=== PATIENT | female | born 1965 | race Caucasian/White ===

== ENCOUNTER 2016-06-29 | Outpatient (CLI) | payer MEDICARE, MEDICAID | END 2016-06-29 21:17 | disposition critical access hospital (66) | CPT/HCPCS: A0425; A0429 ==

== ENCOUNTER 2016-06-29 21:31 | Emergency (ER) | payer MEDICARE, MEDICAID | END 2016-06-30 06:32 | disposition home or self-care (01) | DX: R50.9 Fever, unspecified (principal); I10 Essential (primary) hypertension; E11.9 Type 2 diabetes mellitus without complications; Z79.4 Long term (current) use of insulin; E03.9 Hypothyroidism, unspecified; G40.909 Epilepsy, unspecified, not intractable, without status epilepticus ==

== ENCOUNTER 2016-08-15 13:42 | Outpatient (CLI) | payer MEDICARE, MEDICAID | END 2016-08-15 13:43 | disposition critical access hospital (66) | DX: R47.02 Dysphasia (principal); M25.552 Pain in left hip | CPT/HCPCS: A0425; A0429 ==

== ENCOUNTER 2016-08-15 14:04 | Emergency (ER) | payer MEDICARE, MEDICAID | END 2016-08-15 18:52 | disposition home or self-care (01) | DX: N28.9 Disorder of kidney and ureter, unspecified (principal); R47.89 Other speech disturbances; E10.69 Type 1 diabetes mellitus with other specified complication; Z79.4 Long term (current) use of insulin; I10 Essential (primary) hypertension; E78.00 Pure hypercholesterolemia, unspecified; G40.909 Epilepsy, unspecified, not intractable, without status epilepticus; E03.9 Hypothyroidism, unspecified; K21.9 Gastro-esophageal reflux disease without esophagitis; M19.90 Unspecified osteoarthritis, unspecified site; Z79.82 Long term (current) use of aspirin ==

== ENCOUNTER 2016-09-14 18:22 | Outpatient (CLI) | payer MEDICARE, MEDICAID | END 2016-09-14 18:23 | disposition critical access hospital (66) | LOC: EMS 18:22 | PROVIDERS: ATTEND Surgery | DX: R45.851 Suicidal ideations (principal) | CPT/HCPCS: A0425; A0429 ==

== ENCOUNTER 2016-09-14 18:39 | Emergency (ER) | payer MEDICARE, MEDICAID | END 2016-09-14 20:30 | disposition home or self-care (01) | DX: F32.9 Major depressive disorder, single episode, unspecified (principal); I10 Essential (primary) hypertension; E78.00 Pure hypercholesterolemia, unspecified; E11.9 Type 2 diabetes mellitus without complications; E03.9 Hypothyroidism, unspecified; K21.9 Gastro-esophageal reflux disease without esophagitis; M10.9 Gout, unspecified; M19.90 Unspecified osteoarthritis, unspecified site; Z79.82 Long term (current) use of aspirin; Z79.4 Long term (current) use of insulin | CPT/HCPCS: 36415; 80053; 80164; 80306; 80307; 81001; 81025; 83690; 84443; 85025; 87086; 99283; G0480 ==

== ENCOUNTER 2016-10-14 14:52 | Outpatient (CLI) | payer MEDICARE, MEDICAID | END 2016-10-14 14:53 | disposition critical access hospital (66) | LOC: EMS 14:52 | PROVIDERS: ATTEND Surgery | DX: F91.9 Conduct disorder, unspecified (principal) | CPT/HCPCS: A0425; A0429 ==

== ENCOUNTER 2016-10-14 15:12 | Emergency (ER) | payer MEDICARE, MEDICAID ==
[2016-10-14 15:18] VITALS: BP 155/86
--- NOTE | 2016-10-14 15:31 | ED Physician Documentation ---
History of Present Illness - Stated complaint Stated Complaint: AGITATED - Chief complaint Chief Complaint: MHE - Additonal information Additional information: hx from pt and EMS51 female lives at [facility] was playing BINGO and using more cards than allowed when asked not to, she became very agitated and upset, yelling and swearing she was aske to go to her room which she did EMS was called when they arrived pt was calm and playing on her phone then [facility] staff tried to give pt ativan and she became upset again her counselor at [facility] could not be reached so she asked to be taken to the hospital so she can talk to someone denies MORALES CP AP, denies fever cough NVD urinary sx denies SI HI Review of Systems Constitutional: denies: Fever Cardiac: denies: Chest pain / pressure Respiratory: denies: Dyspnea, Cough GI: denies: Abdominal Pain, Nausea, Vomiting, Diarrhea : denies: Dysuria Neurologic: denies: Generalized weakness Immunocompromised: denies: Immunocompromised PD PAST MEDICAL HISTORY - Past Medical History Cardiovascular: Hypertension, High cholesterol Neuro: Seizure disorder, Other Endocrine/Autoimmune: Type 2 diabetes, HyPOthyroidism GI: GERD : Incontinence Psych: Depression, Anxiety, Bipolar disorder, Schizophrenia, Eating disorder, Other Musculoskeletal: Osteoarthritis, Gout, Other - Past Surgical History Past Surgical History: Yes General: Appendectomy HEENT: Other - Present Medications Home Medications: Ambulatory Orders Medication Instructions Recorded Confirmed Allopurinol [Zyloprim] 300 mg PO QPM 02/05/15 10/14/16 Aspirin [Ecotrin] 81 mg PO QPM 02/05/15 10/14/16 Atorvastatin [Lipitor] 40 mg PO QPM 02/05/15 10/14/16 Divalproex Sodium [Depakote] 1,000 mg PO BID 02/05/15 10/14/16 Furosemide 40 mg PO DAILY 02/05/15 10/14/16 Levothyroxine [Synthroid] 75 mcg PO QDAC 02/05/15 10/14/16 Sennosides [Senna Lax] 2 tab PO BID 02/05/15 10/14/16 raNITIdine [Zantac] 150 mg PO QPM 02/05/15 10/14/16 Quetiapine Fumarate [Seroquel] 800 mg PO QPM 04/14/15 10/14/16 Calcium Carbonate 500 mg PO BID 07/03/15 10/14/16 Citalopram Hydrobromide [Celexa] 40 mg PO DAILY 07/03/15 10/14/16 LORazepam [Ativan] 0.5 mg PO 0800,1300,1700,2000 07/03/15 10/14/16 Nitroglycerin [Nitrostat] 0.4 mg SL Q5M PRN 07/03/15 10/14/16 Oxybutynin Chloride [Ditropan Xl] 5 mg PO DAILY 07/03/15 10/14/16 Insulin Glargine,Hum.rec.anlog 100 units QPM 10/27/15 10/14/16 [Lantus] Trazodone HCl 1 - 2 tab PO QPM 10/27/15 10/14/16 Lisinopril [Lisinopril] 10 mg ORAL DAILY 12/05/15 10/14/16 Ibuprofen 400 mg QID PRN 06/29/16 10/14/16 Clotrimazole Andrew 10 mg MM 5XD 09/14/16 10/14/16 - Allergies Allergies/Adverse Reactions: Allergies Allergy/AdvReac Type Severity Reaction Status Date / Time lamotrigine [From Lamictal] Allergy Unknown Verified 09/14/16 18:49 - Social History Does the pt smoke?: No Smoking Status: Never smoker Does the pt drink ETOH?: No Does the pt have substance abuse?: No - Immunizations Immunizations are current?: Yes Immunizations: TDAP current <10years - POLST Patient has POLST: No PD ED PE NORMAL - Vitals Vital signs reviewed: Yes - General General: Other (alert calm cooperative) - Cardiac Cardiac: RRR - Respiratory Respiratory: No respiratory distress, Clear bilaterally - Derm Derm: Normal color - Neuro Neuro: Other (alert cooperative) Results - Vitals Vitals: Vital Signs - 24 hr 10/14/16 15:15 Temperature 36.5 C Heart Rate 105 H Respiratory 16 Rate Blood Pressure 155/86 H O2 Saturation 96 Oxygen O2 Source Room air PD MEDICAL DECISION MAKING - ED course ED course: pt is going to call her personal counselor jessica she is calm now no apparent acute medical or psych issue will dc pt does not want to go back to [facility] but explained that for now that is her home and the place she needs to return to even if she got upset during BINGO today pt also met with SW Departure - Departure Disposition: Home, Self Care Clinical Impression: Agitation Condition: Good Follow-Up: Elmer Head MD [Primary Care Provider] - Comments: Please follow up with your PMD to get your blood pressure rechecked - it was high today Discharge Date/Time: 10/14/16 17:22
== END 2016-10-14 17:22 | disposition home or self-care (01) ==
LOC: EDUNIT# → ED 15:12
DX: R45.1 Restlessness and agitation (principal); I10 Essential (primary) hypertension; E11.9 Type 2 diabetes mellitus without complications; Z79.4 Long term (current) use of insulin; E03.9 Hypothyroidism, unspecified; Z79.82 Long term (current) use of aspirin
CPT/HCPCS: 99283

== ENCOUNTER 2016-11-07 15:04 | Outpatient (CLI) | payer MEDICARE, MEDICAID | END 2016-11-07 15:05 | disposition critical access hospital (66) | LOC: EMS 15:04 | PROVIDERS: ATTEND Surgery | DX: L98.9 Disorder of the skin and subcutaneous tissue, unspecified (principal) | CPT/HCPCS: A0425; A0429 ==

== ENCOUNTER 2016-11-07 15:23 | Emergency (ER) | payer MEDICARE, MEDICAID ==
[2016-11-07] MEDS ORDERED: SULFAMETH/TRIMETH DS 800/160 MG TABLET PO STA (16:38)
[2016-11-07] MEDS ORDERED: SULFAMETH/TRIMETH DS 800/160 MG TABLET PO ONE (16:55)
== END 2016-11-07 17:38 | disposition home or self-care (01) ==
DX: L02.413 Cutaneous abscess of right upper limb (principal); F20.9 Schizophrenia, unspecified; E11.9 Type 2 diabetes mellitus without complications; Z79.4 Long term (current) use of insulin; I10 Essential (primary) hypertension; E78.00 Pure hypercholesterolemia, unspecified; E03.9 Hypothyroidism, unspecified; K21.9 Gastro-esophageal reflux disease without esophagitis; M19.90 Unspecified osteoarthritis, unspecified site; M10.9 Gout, unspecified; Z79.82 Long term (current) use of aspirin
CPT/HCPCS: 99283; A9270

== ENCOUNTER 2016-12-09 09:29 | Outpatient (CLI) | payer MEDICARE, MEDICAID ==
[2016-12-09 12:44] LABS: BASOPHILS % (AUTO) 0.5 %; EOSINOPHILS # (AUTO) 0.3 10^3/uL (0.0-0.7); HCT - HEMATOCRIT 37.7 % (37.0-47.0); HGB - HEMOGLOBIN 12.4 g/dL (12.0-16.0); LYMPHOCYTES # (AUTO) 2.3 10^3/uL (1.5-3.5); LYMPHOCYTES % (AUTO) 34.1 %; MEAN CORPUSCULAR HEMOGLOBIN 32.9 pg (27.0-31.0); MEAN CORPUSCULAR HGB CONC 32.8 g/dL (32.0-36.0); MEAN CORPUSCULAR VOLUME 100.4 fL (81.0-99.0); MEAN PLATELET VOLUME 8.3 fL (7.9-10.8); MONOCYTES # (AUTO) 0.5 10^3/uL (0.0-1.0); MONOCYTES % (AUTO) 7.9 %; NEUTROPHILS # (AUTO) 3.6 10^3/uL (1.5-6.6); NEUTROPHILS % (AUTO) 53.5 %; RED BLOOD COUNT 3.76 10^6/uL (4.20-5.40); RED CELL DISTRIBUTION WIDTH 15.9 % (12.0-15.0); UNCORRECTED WHITE BLOOD COUNT 6.8 x10^3/uL; WHITE BLOOD COUNT 6.8 x10^3/uL (4.8-10.8)
[2016-12-09 13:49] LABS: HEMOGLOBIN A1C 1.01 g/dL
[2016-12-09 15:03] LABS: ALBUMIN/GLOBULIN RATIO 1.2 (1.0-2.2); BILIRUBIN,TOTAL 0.5 mg/dL (0.2-1.0); BUN - BLOOD UREA NITROGEN 34 mg/dL (6-20); CALCIUM 9.6 mg/dL (8.5-10.3); CARBON DIOXIDE - CO2 28 mmol/L (21-32); CHLORIDE 95 mmol/L (101-111); CHOL/HDL RATIO 4.7 (<4.4); CHOLESTEROL 173 mg/dL; CREATININE 1.9 mg/dL (0.4-1.0); GFR - MDRD 28 (>89); GLUCOSE 233 mg/dL (70-100); HDL CHOLESTEROL 37 mg/dL; POTASSIUM 4.6 mmol/L (3.5-5.0); SODIUM 134 mmol/L (135-145); TOTAL PROTEIN 6.7 g/dL (6.7-8.2); TRIGLYCERIDES 483 mg/dL
[2016-12-09 15:24] LABS: LDL CHOLESTEROL,DIRECT 79 mg/dL
== END 2016-12-09 09:30 | disposition home or self-care (01) ==
LOC: LAB.N 09:29
PROVIDERS: ATTEND Nurse Practitioner Gerontology
DX: E11.9 Type 2 diabetes mellitus without complications (principal); Z79.899 Other long term (current) drug therapy
CPT/HCPCS: 36415; 80053; 80061; 83036; 84443; 85025

== ENCOUNTER 2017-01-04 21:16 | Outpatient (CLI) | payer MEDICARE, MEDICAID | END 2017-01-04 21:17 | disposition critical access hospital (66) | LOC: EMS 21:16 | PROVIDERS: ATTEND Surgery | DX: R46.89 Other symptoms and signs involving appearance and behavior (principal) | CPT/HCPCS: A0425; A0429 ==

== ENCOUNTER 2017-01-04 21:31 | Emergency (ER) | payer MEDICARE, MEDICAID ==
--- NOTE | 2017-01-05 00:31 | ED Physician Documentation ---
PD HPI MHE - Stated complaint Stated Complaint: AGITATED - Chief complaint Chief Complaint: MHE - History obtained from History obtained from: Patient, EMS - History of Present Illness Primary symptom: Anxiety Timing - onset: Today Pain level now: 0 Recently seen: Emergency Dept - Additional information Additional information: frequent [facility] ED visit. From [facility], she became anxious while pondering over the fact that new owners are taking over the management of [facility] within the next few months, and this makes her anxious. she has fears that her needs wont be met and that she will be forced to leave the facility. She became increasingly anxious and eventually requested 911 so she could be brought to the hospital. Review of Systems Constitutional: reports: Reviewed and negative Cardiac: reports: Reviewed and negative Respiratory: reports: Reviewed and negative GI: reports: Reviewed and negative : denies: Dysuria, Frequency Neurologic: reports: Reviewed and negative PD PAST MEDICAL HISTORY - Past Medical History Past Medical History: Yes Cardiovascular: Hypertension, High cholesterol Neuro: Seizure disorder, Other Endocrine/Autoimmune: Type 2 diabetes, HyPOthyroidism GI: GERD : Incontinence Psych: Depression, Anxiety, Bipolar disorder, Schizophrenia, Eating disorder, Other Musculoskeletal: Osteoarthritis, Gout, Other - Past Surgical History Past Surgical History: Yes General: Appendectomy HEENT: Other - Present Medications Home Medications: Ambulatory Orders Medication Instructions Recorded Confirmed Allopurinol [Zyloprim] 300 mg PO QPM 02/05/15 11/07/16 Aspirin [Ecotrin] 81 mg PO QPM 02/05/15 11/07/16 Atorvastatin [Lipitor] 40 mg PO QPM 02/05/15 11/07/16 Divalproex Sodium [Depakote] 1,000 mg PO QPM 02/05/15 11/07/16 Furosemide 40 mg PO DAILY 02/05/15 11/07/16 Levothyroxine [Synthroid] 75 mcg PO QDAC 02/05/15 11/07/16 Sennosides [Senna Lax] 2 tab PO BID 02/05/15 11/07/16 raNITIdine [Zantac] 150 mg PO QPM 02/05/15 11/07/16 Quetiapine Fumarate [Seroquel] 800 mg PO QPM 04/14/15 11/07/16 Calcium Carbonate 500 mg PO BID 07/03/15 11/07/16 Citalopram Hydrobromide [Celexa] 40 mg PO DAILY 07/03/15 11/07/16 LORazepam [Ativan] 0.5 mg PO 0800,1300,1700,2000 07/03/15 11/07/16 Nitroglycerin [Nitrostat] 0.4 mg SL Q5M PRN 07/03/15 11/07/16 Oxybutynin Chloride [Ditropan Xl] 5 mg PO DAILY 07/03/15 11/07/16 Insulin Glargine,Hum.rec.anlog 100 units QPM 10/27/15 11/07/16 [Lantus] Trazodone HCl 1 - 2 tab PO QPM 10/27/15 11/07/16 Lisinopril [Lisinopril] 10 mg ORAL DAILY 12/05/15 11/07/16 Ibuprofen 400 mg QID PRN 06/29/16 11/07/16 Clotrimazole Andrew 10 mg MM 5XD PRN 09/14/16 11/07/16 Brexpiprazole [Rexulti] 1 mg DAILY 11/07/16 11/07/16 Insulin Regular, Human [Humulin R] BID 11/07/16 - Allergies Allergies/Adverse Reactions: Allergies Allergy/AdvReac Type Severity Reaction Status Date / Time lamotrigine [From Lamictal] Allergy Unknown Verified 11/07/16 16:32 - Social History Does the pt smoke?: No Smoking Status: Never smoker Does the pt drink ETOH?: No Does the pt have substance abuse?: No - Immunizations Immunizations are current?: Yes Immunizations: TDAP current <10years - POLST Patient has POLST: No PD ED PE NORMAL - Vitals Vital signs reviewed: Yes - General General: Alert and oriented X 3, No acute distress, Well developed/nourished, Other (smiling, happy, active, and she actually initiated a "high five" when I told her she would probably be going back to [facility]) - HEENT HEENT: PERRL, EOMI, Moist mucous membranes, Other (amblyopia) - Neck Neck: Supple, no meningeal sign - Cardiac Cardiac: RRR, No murmur - Respiratory Respiratory: No respiratory distress, Clear bilaterally - Neuro Neuro: Alert and oriented X 3 - Psych Psych: Normal mood (fair to good), Normal affect (more anikated than usual at times, but otheertimes during stay she was flat and frightened) Results - Vitals Vitals: Oxygen O2 Source Room air - Labs Labs: Laboratory Tests 01/04/17 21:39 POC Whole Bld Glucose 218 H PD MEDICAL DECISION MAKING - ED course Complexity details: reviewed old records, reviewed results, considered differential, d/w patient ED course: patient was happy and eager to return to [facility]. Departure - Departure Disposition: 01 Home, Self Care Clinical Impression: Anxiety attack Condition: Good Instructions: ED Stress React Discharge Date/Time: 01/05/17 02:34
[2017-01-05 02:12] VITALS: BP 127/71
== END 2017-01-05 02:34 | disposition home or self-care (01) ==
LOC: EDUNIT# → ED 21:31
DX: F41.0 Panic disorder [episodic paroxysmal anxiety] (principal); F20.9 Schizophrenia, unspecified; F31.9 Bipolar disorder, unspecified; I10 Essential (primary) hypertension; E78.00 Pure hypercholesterolemia, unspecified; E11.9 Type 2 diabetes mellitus without complications; Z79.4 Long term (current) use of insulin; E03.9 Hypothyroidism, unspecified; K21.9 Gastro-esophageal reflux disease without esophagitis; M19.90 Unspecified osteoarthritis, unspecified site; M10.9 Gout, unspecified; Z79.82 Long term (current) use of aspirin
CPT/HCPCS: 99282; 99283

== ENCOUNTER 2017-01-17 12:49 | Outpatient (CLI) | payer MEDICARE, MEDICAID | END 2017-01-17 12:50 | disposition critical access hospital (66) | LOC: EMS 12:49 | PROVIDERS: ATTEND Surgery | DX: M25.551 Pain in right hip (principal) | CPT/HCPCS: A0425; A0429 ==

== ENCOUNTER 2017-01-17 13:07 | Emergency (ER) | payer MEDICARE, MEDICAID ==
[2017-01-17] MEDS ORDERED: LIDOCAINE PATCH 5% TOP STA (13:18)
[2017-01-17] MEDS ORDERED: ACETAMINOPHEN 325 MG TABLET PO STA (13:18)
[2017-01-17] MEDS ORDERED: ACETAMINOPHEN 325 MG TABLET PO ONE (13:27)
[2017-01-17] MEDS ORDERED: LIDOCAINE PATCH 5% TOP ONE (13:28)
--- NOTE | 2017-01-17 13:31 | ED Physician Documentation ---
History of Present Illness - Stated complaint Stated Complaint: HIP PX - Chief complaint Chief Complaint: Ext Problem - Additonal information Additional information: hx from pt 51 f BIBA from [facility] for R hip pain of several days duration no injury worse with walking no abd or back pain no radiation pt states no hx of same but also uses a walker and reports a hx of arthritis Review of Systems Constitutional: denies: Fever Cardiac: denies: Chest pain / pressure Respiratory: denies: Dyspnea GI: denies: Abdominal Pain : denies: Dysuria Musculoskeletal: reports: Joint pain. denies: Back pain Neurologic: denies: Focal weakness, Numbness Endocrine: denies: Easy bruising / bleeding Immunocompromised: denies: Immunocompromised PD PAST MEDICAL HISTORY - Past Medical History Past Medical History: Yes Cardiovascular: Hypertension, High cholesterol Neuro: Seizure disorder, Other Endocrine/Autoimmune: Type 2 diabetes, HyPOthyroidism GI: GERD : Incontinence Psych: Depression, Anxiety, Bipolar disorder, Schizophrenia, Eating disorder, Other Musculoskeletal: Osteoarthritis, Gout, Other - Past Surgical History Past Surgical History: Yes General: Appendectomy HEENT: Other - Present Medications Home Medications: Ambulatory Orders Medication Instructions Recorded Confirmed Allopurinol [Zyloprim] 300 mg PO QPM 02/05/15 01/17/17 Aspirin [Ecotrin] 81 mg PO QPM 02/05/15 01/17/17 Atorvastatin [Lipitor] 40 mg PO QPM 02/05/15 01/17/17 Divalproex Sodium [Depakote] 1,000 mg PO QPM 02/05/15 01/17/17 Furosemide 40 mg PO DAILY 02/05/15 01/17/17 Levothyroxine [Synthroid] 75 mcg PO QDAC 02/05/15 01/17/17 Sennosides [Senna Lax] 2 tab PO BID 02/05/15 01/17/17 raNITIdine [Zantac] 150 mg PO QPM 02/05/15 01/17/17 Quetiapine Fumarate [Seroquel] 800 mg PO QPM 04/14/15 01/17/17 Calcium Carbonate 500 mg PO BID 07/03/15 01/17/17 Citalopram Hydrobromide [Celexa] 40 mg PO DAILY 07/03/15 01/17/17 LORazepam [Ativan] 0.5 mg PO 0800,1300,1700,2000 07/03/15 09/12/17 Nitroglycerin [Nitrostat] 0.4 mg SL Q5M PRN 07/03/15 01/17/17 Oxybutynin Chloride [Ditropan Xl] 5 mg PO DAILY 07/03/15 01/17/17 Insulin Glargine,Hum.rec.anlog 100 units QPM 10/27/15 01/17/17 [Lantus] Trazodone HCl 1 - 2 tab PO QPM 10/27/15 01/17/17 Lisinopril [Lisinopril] 10 mg ORAL DAILY 12/05/15 01/17/17 Ibuprofen 400 mg QID PRN 06/29/16 01/17/17 Clotrimazole Andrew 10 mg MM 5XD PRN 09/14/16 01/17/17 Brexpiprazole [Rexulti] 1 mg PO DAILY 11/07/16 01/17/17 Insulin Regular, Human [Humulin R] 1 unit SQ BID 11/07/16 01/17/17 Gluc Scott Dipo Ch/Shiv Scott/C/Manuel 1 each PO DAILY #30 capsule 01/17/17 [Glucosamine-Chondroitin Capsul] Lidocaine Patch 5% [Lidoderm Patch] 1 each TOP DAILY PRN #10 patch 01/17/17 Wheelchair 1 each MC DAILY #1 each 01/17/17 - Allergies Allergies/Adverse Reactions: Allergies Allergy/AdvReac Type Severity Reaction Status Date / Time lamotrigine [From Lamictal] Allergy Unknown Verified 11/07/16 16:32 - Social History Does the pt smoke?: No Smoking Status: Never smoker Does the pt drink ETOH?: No Does the pt have substance abuse?: No - Immunizations Immunizations are current?: Yes Immunizations: TDAP current <10years - POLST Patient has POLST: No PD ED PE NORMAL - Vitals Vital signs reviewed: Yes - General General: Alert and oriented X 3 - HEENT HEENT: PERRL - Cardiac Cardiac: RRR - Respiratory Respiratory: No respiratory distress - Abdomen Abdomen: Soft, Non tender, Other (no RLQ TTP on exam) - Derm Derm: Normal color, Other (no shingles seen) - Extremities Extremities: No deformity, No edema, No calf tenderness / cord, Other (R hip s erythema, swelling, bruising, armth, no pain with int ext rotation but pain with flexion, no femur TTP, no leg edema, calf NT, MSV to foot) - Neuro Neuro: No motor deficit, Other (alert, cooperative, transfers with assistance, moving all ext) Results - Vitals Vitals: Vital Signs - 24 hr 01/17/17 13:13 Temperature 36.7 C Heart Rate 94 Respiratory 20 Rate Blood Pressure 105/68 O2 Saturation 96 Oxygen O2 Source Room air - Rads (name of study) hips Radiology: See rad report (severe roland OA L > R, no fx, no dislocation) Departure - Departure Disposition: Home, Self Care Clinical Impression: Arthritis Condition: Good Instructions: ED Degenerative Joint Disease Follow-Up: Elmer Head MD [Primary Care Provider] - Prescriptions: Gluc Scott Dipo Ch/Shiv Scott/C/Manuel [Glucosamine-Chondroitin Capsul] 1 each PO DAILY #30 capsule Lidocaine Patch 5% [Lidoderm Patch] 1 each TOP DAILY PRN #10 patch PRN Reason: Pain Wheelchair 1 each MC DAILY #1 each Comments: The xray shows severe arthritis but no fractures or dislocation Try the joint supplements I prescribed and the lidocaine patches (one patch up to 12 hr per day) I also wrote a prescription for a wheelchair to be sued if you need to go a long ways, but it is still important that you frequently get up and move around with your walker to maintain mobility and strength and decrease the chance of blood clots
--- NOTE | 2017-01-17 14:29 | XRAY Preliminary Report ---
Exam: XR Hip w/Pelvis 2-3V RT IMPRESSION: 1. Severe bilateral osteoarthritic changes, worse on the left. 2. No fractures. 3. SI joints, pubic symphysis and iliac bones otherwise unremarkable. [facility] SITE ID: [id number]
--- NOTE | 2017-01-17 16:43 | XRAY Report ---
EXAM: RIGHT HIP AND PELVIS RADIOGRAPHY EXAM DATE: 01/17/2017 01:20 PM. HISTORY: Hip pain. COMPARISONS: None. TECHNIQUE: 1 view of the pelvis and 1 view of the hip. FINDINGS: Bones: Normal. No fracture or bone lesion. Joints: Right hip joint is narrow, there is significant "cam lobe" contour superolateral femoral head . Left hip joint shows severe osteoarthritic change as well, with larger amount of dysplastic changes a t the superior lateral aspect of the femoral head/neck junction. Soft Tissues: Normal. No soft tissue swelling. IMPRESSION: 1. Severe bilateral osteoarthritic changes, worse on the left. 2. No fractures. 3. SI joints, pubic symphysis and iliac bones otherwise unremarkable. [facility] Referring Provider Line: [phone] SITE ID: [id number]
[2017-01-17 17:15] VITALS: BP 129/64
== END 2017-01-17 17:15 | disposition home or self-care (01) ==
LOC: EDUNIT# → ED 13:07
DX: M19.90 Unspecified osteoarthritis, unspecified site (principal); I10 Essential (primary) hypertension; E11.9 Type 2 diabetes mellitus without complications; Z79.4 Long term (current) use of insulin
CPT/HCPCS: 73502; 99283; A9270

== ENCOUNTER 2017-02-11 22:54 | Outpatient (CLI) | payer MEDICARE, MEDICAID | END 2017-02-11 22:55 | disposition critical access hospital (66) | LOC: EMS 22:54 | PROVIDERS: ATTEND Surgery | DX: R73.09 Other abnormal glucose (principal) | CPT/HCPCS: A0425; A0429 ==

== ENCOUNTER 2017-02-11 23:09 | Emergency (ER) | payer MEDICARE, MEDICAID ==
--- NOTE | 2017-02-12 01:56 | ED Physician Documentation ---
History of Present Illness - Stated complaint Stated Complaint: BLOOD SUGAR ISSUE - Chief complaint Chief Complaint: General - History obtained from History obtained from: Patient, EMS - History of Present Illness Timing: Today - Additonal information Additional information: Brought in by ambulance from [facility]. Patient says she was unsatisfied with the way [facility] staff was preparing her insulin injection tonight, and patient became upset and wanted to leave [facility], asked to be sent to emergency department to consider alternative options to returning to [facility]. She has had similar [facility] ED presentations in the past (regarding frustration with [facility]; previously, she was agreeable to return to [facility]). Review of Systems Cardiac: reports: Reviewed and negative Respiratory: reports: Reviewed and negative GI: reports: Reviewed and negative : denies: Frequency PD PAST MEDICAL HISTORY - Past Medical History Cardiovascular: Hypertension, High cholesterol Neuro: Seizure disorder, Other Endocrine/Autoimmune: Type 2 diabetes, HyPOthyroidism GI: GERD : Incontinence Psych: Depression, Anxiety, Bipolar disorder, Schizophrenia, Eating disorder, Other Musculoskeletal: Osteoarthritis, Gout, Other - Past Surgical History Past Surgical History: Yes General: Appendectomy HEENT: Other - Present Medications Home Medications: Ambulatory Orders Medication Instructions Recorded Confirmed Allopurinol [Zyloprim] 300 mg PO QPM 02/05/15 01/17/17 Aspirin [Ecotrin] 81 mg PO QPM 02/05/15 01/17/17 Atorvastatin [Lipitor] 40 mg PO QPM 02/05/15 01/17/17 Divalproex Sodium [Depakote] 1,000 mg PO QPM 02/05/15 01/17/17 Furosemide 40 mg PO DAILY 02/05/15 01/17/17 Levothyroxine [Synthroid] 75 mcg PO QDAC 02/05/15 01/17/17 Sennosides [Senna Lax] 2 tab PO BID 02/05/15 01/17/17 raNITIdine [Zantac] 150 mg PO QPM 02/05/15 01/17/17 Quetiapine Fumarate [Seroquel] 800 mg PO QPM 04/14/15 01/17/17 Calcium Carbonate 500 mg PO BID 07/03/15 01/17/17 Citalopram Hydrobromide [Celexa] 40 mg PO DAILY 07/03/15 01/17/17 LORazepam [Ativan] 0.5 mg PO 0800,1300,1700,199907/03/15 01/17/17 Nitroglycerin [Nitrostat] 0.4 mg SL Q5M PRN 07/03/15 01/17/17 Oxybutynin Chloride [Ditropan Xl] 5 mg PO DAILY 07/03/15 01/17/17 Insulin Glargine,Hum.rec.anlog 100 units QPM 10/27/15 01/17/17 [Lantus] Trazodone HCl 1 - 2 tab PO QPM 10/27/15 01/17/17 Lisinopril [Lisinopril] 10 mg ORAL DAILY 12/05/15 01/17/17 Ibuprofen 400 mg QID PRN 06/29/16 01/17/17 Clotrimazole Andrew 10 mg MM 5XD PRN 09/14/16 01/17/17 Brexpiprazole [Rexulti] 1 mg PO DAILY 11/07/16 01/17/17 Insulin Regular, Human [Humulin R] 1 unit SQ BID 11/07/16 01/17/17 Gluc Scott Dipo Ch/Shiv Scott/C/Manuel 1 each PO DAILY #30 capsule 01/17/17 [Glucosamine-Chondroitin Capsul] Lidocaine Patch 5% [Lidoderm Patch] 1 each TOP DAILY PRN #10 patch 01/17/17 Wheelchair 1 each MC DAILY #1 each 01/17/17 - Allergies Allergies/Adverse Reactions: Allergies Allergy/AdvReac Type Severity Reaction Status Date / Time lamotrigine [From Lamictal] Allergy Unknown Verified 02/11/17 23:14 - Social History Does the pt smoke?: No Smoking Status: Never smoker Does the pt drink ETOH?: No Does the pt have substance abuse?: No - Immunizations Immunizations are current?: Yes Immunizations: TDAP current <10years - POLST Patient has POLST: No PD ED PE NORMAL - Vitals Vital signs reviewed: Yes - General General: Alert and oriented X 3, No acute distress, Well developed/nourished, Other (dysarthic speech which is baseline (based on my previous encounters with this patient)) - HEENT HEENT: Moist mucous membranes - Neck Neck: Supple, no meningeal sign - Cardiac Cardiac: RRR, No murmur - Respiratory Respiratory: No respiratory distress, Clear bilaterally - Abdomen Abdomen: Soft, Non tender Results - Vitals Vitals: Vital Signs - 24 hr 02/12/17 07:35 Temperature 36.4 C L Heart Rate 87 Respiratory 18 Rate Blood Pressure 128/79 O2 Saturation 95 Oxygen O2 Source Room air PD MEDICAL DECISION MAKING - ED course Complexity details: reviewed old records, re-evaluated patient, considered differential, d/w patient ED course: Patient does not present with signs/symptoms that would indicate emergent testing beyond bedside FSBS checks (initially 306 on ED presentation, but without intervention, this improved to 196). She continued to insist on not wanting to go back to [facility], and tells me she has a friend she can call to stay with. When I pointed out to the patient that she has a long list of prescription medications that need to be prescribed and given to her, she agreed that going to stay with a friend was not a reasonable option. She continued to ask that I not send her back to [facility], but was agreeable to staying in ED for SW consult in AM. Given breakfast in AM, and at that time, I ordered 17 units of regular insulin based on the sliding scale that is on her printed medication list from [facility]. Departure - Departure Disposition: 01 Home, Self Care Clinical Impression: Hyperglycemia due to type 1 diabetes mellitus Condition: Good Instructions: ED Hyperglycemia Diabetic Discharge Date/Time: 02/12/17 11:12
[2017-02-12 07:36] VITALS: BP 128/79
[2017-02-12] MEDS ORDERED: INSULIN REGULAR HUMAN 100 UNIT/1 ML 10 ML MDV SUBQ STA (08:09)
[2017-02-12] MEDS ORDERED: INSULIN REGULAR HUMAN 100 UNIT/1 ML 10 ML MDV ONE (08:22)
== END 2017-02-12 11:12 | disposition home or self-care (01) ==
LOC: EDUNIT# → ED 23:09
DX: E10.65 Type 1 diabetes mellitus with hyperglycemia (principal); I10 Essential (primary) hypertension; E03.9 Hypothyroidism, unspecified; Z79.82 Long term (current) use of aspirin
CPT/HCPCS: 99283; 99284; J1815

== ENCOUNTER 2017-02-13 15:00 | Outpatient (CLI) | payer MEDICARE, MEDICAID | END 2017-02-13 15:01 | disposition critical access hospital (66) | LOC: EMS 15:00 | PROVIDERS: ATTEND Surgery | DX: R45.851 Suicidal ideations (principal) | CPT/HCPCS: A0425; A0429 ==

== ENCOUNTER 2017-02-13 15:17 | Emergency (ER) | payer MEDICARE, MEDICAID ==
[2017-02-13 15:36] VITALS: BP 137/70
--- NOTE | 2017-02-13 15:45 | ED Physician Documentation ---
PD HPI MHE - Stated complaint Stated Complaint: SI - Chief complaint Chief Complaint: MHE - History obtained from History obtained from: Patient - History of Present Illness Primary symptom: Suicidal ideation, Other (having interaction problems with staff at [facility]. She feels very frustrated with the staff there in that she does not feel understood or respected.) Timing - onset: Today (has been going on for awhile though, in that she has felt poor interactions with the staff.) Contributing factors: Other (staff and conditions at [facility]) Similar symptoms before: Diagnosis (depression, situational problems) Recently seen: Emergency Dept Review of Systems Constitutional: denies: Fever Nose: denies: Rhinorrhea / runny nose, Congestion Throat: denies: Sore throat Cardiac: denies: Chest pain / pressure Respiratory: denies: Cough GI: denies: Abdominal Pain, Nausea, Vomiting, Diarrhea Skin: denies: Rash, Lesions PD PAST MEDICAL HISTORY - Past Medical History Cardiovascular: Hypertension, High cholesterol Neuro: Seizure disorder, Other Endocrine/Autoimmune: Type 2 diabetes, HyPOthyroidism GI: GERD : Incontinence Psych: Depression, Anxiety, Bipolar disorder, Schizophrenia, Eating disorder, Other Musculoskeletal: Osteoarthritis, Gout, Other - Past Surgical History Past Surgical History: Yes General: Appendectomy HEENT: Other - Present Medications Home Medications: Ambulatory Orders Medication Instructions Recorded Confirmed Allopurinol [Zyloprim] 300 mg PO QPM 02/05/15 02/13/17 Aspirin [Ecotrin] 81 mg PO QPM 02/05/15 02/13/17 Atorvastatin [Lipitor] 40 mg PO QPM 02/05/15 02/13/17 Divalproex Sodium [Depakote] 1,000 mg PO QPM 02/05/15 02/13/17 Furosemide 40 mg PO DAILY 02/05/15 02/13/17 Levothyroxine [Synthroid] 75 mcg PO QDAC 02/05/15 02/13/17 Sennosides [Senna Lax] 2 tab PO BID 02/05/15 02/13/17 raNITIdine [Zantac] 150 mg PO QPM 02/05/15 02/13/17 Quetiapine Fumarate [Seroquel] 800 mg PO QPM 04/14/15 02/13/17 Calcium Carbonate 500 mg PO BID 07/03/15 02/13/17 Citalopram Hydrobromide [Celexa] 40 mg PO DAILY 07/03/15 02/13/17 LORazepam [Ativan] 0.5 mg PO 0800,1300,1700,2000 07/03/15 02/13/17 Nitroglycerin [Nitrostat] 0.4 mg SL Q5M PRN 07/03/15 02/13/17 Oxybutynin Chloride [Ditropan Xl] 5 mg PO DAILY 07/03/15 02/13/17 Insulin Glargine,Hum.rec.anlog 100 units QPM 10/27/15 02/13/17 [Lantus] Trazodone HCl 1 - 2 tab PO QPM 10/27/15 02/13/17 Lisinopril [Lisinopril] 10 mg ORAL DAILY 12/05/15 02/13/17 Ibuprofen 400 mg QID PRN 06/29/16 02/13/17 Clotrimazole Andrew 10 mg MM 5XD PRN 09/14/16 02/13/17 Brexpiprazole [Rexulti] 1 mg PO DAILY 11/07/16 02/13/17 Insulin Regular, Human [Humulin R] 1 unit SQ BID 11/07/16 02/13/17 Gluc Scott Dipo Ch/Shiv Scott/C/Manuel 1 each PO DAILY #30 capsule 01/17/17 02/13/17 [Glucosamine-Chondroitin Capsul] Lidocaine Patch 5% [Lidoderm Patch] 1 each TOP DAILY PRN #10 patch 01/17/1701/22 Wheelchair 1 each MC DAILY #1 each 01/17/17 02/13/17 - Allergies Allergies/Adverse Reactions: Allergies Allergy/AdvReac Type Severity Reaction Status Date / Time lamotrigine [From Lamictal] Allergy Unknown Verified 02/13/17 15:36 - Social History Does the pt smoke?: No Smoking Status: Never smoker Does the pt drink ETOH?: No Does the pt have substance abuse?: No - Immunizations Immunizations are current?: Yes Immunizations: TDAP current <10years - POLST Patient has POLST: No PD ED PE NORMAL - Vitals Vital signs reviewed: Yes - General General: Alert and oriented X 3, No acute distress, Well developed/nourished - HEENT HEENT: Pharynx benign - Neck Neck: Supple, no meningeal sign, No adenopathy - Cardiac Cardiac: RRR, No murmur - Respiratory Respiratory: Clear bilaterally - Abdomen Abdomen: Soft, Non tender - Derm Derm: Normal color, Warm and dry - Neuro Neuro: Alert and oriented X 3, No motor deficit, Normal speech, Other ( seemingly some cognitive delay or problem but still conversant and interacts well. Denies suicidal intent at this time. ) Results - Vitals Vitals: Oxygen O2 Source Room air - Labs Labs: Laboratory Tests 02/13/17 02/13/17 02/13/17 16:08 16:08 16:08 WBC 9.2 RBC 3.88 L Hgb 12.7 Hct 38.3 MCV 98.9 MCH 32.7 H MCHC 33.0 RDW 16.1 H Plt Count 172 MPV 7.4 L Neut # 6.0 Lymph # 2.3 Reagan # 0.6 Eos # 0.2 Baso # 0.1 Absolute Nucleated RBC 0.00 Nucleated RBC % 0.0 Sodium 131 L Potassium 4.2 Chloride 90 L Carbon Dioxide 26 Anion Gap 15.0 H BUN 39 H Creatinine 1.9 H Estimated GFR (MDRD) 28 L Glucose 197 H Calcium 10.0 Total Bilirubin 0.4 AST 39 ALT 29 Alkaline Phosphatase 125 H Total Protein 7.6 Albumin 4.2 Globulin 3.4 Albumin/Globulin Ratio 1.2 Lipase 63 H TSH 1.74 Acetaminophen < 10 L Ethyl Alcohol < 5.0 PD MEDICAL DECISION MAKING - ED course Complexity details: considered differential (SW have left for today and patient is wanting alternative to [facility]. Not likely to find one but SW input would be needed. Patient not really wanting to hurt herself. She said to me "If I had a gun right now in my hand, I wouldn't be able to use it." She does seem unhappy with [facility], but I don't know how to resolve that at this time. I asked if she could be okay with [facility] for tonight and if still unhappy with the place, to return tomorrow earlier when SW is here to see what options there are. Also can talk with SW through her PCP. ), d/w patient Departure - Departure Disposition: 01 Home, Self Care Clinical Impression: Situational depression Condition: Stable Record reviewed to determine appropriate education?: Yes Follow-Up: Elmre Head MD [Primary Care Provider] - Comments: I am sorry our social workers had left for the day already. I put in an order for them to look into options for you when they are here again tomorrow. We will try to work through our social workers here and the social welfare clerk at [facility] about other placement. Continue usual medications and drink lots of fluids. Discharge Date/Time: 02/13/17 17:10
[2017-02-13 16:13] LABS: BASOPHILS # (AUTO) 0.1 10^3/uL (0.0-0.1); EOSINOPHILS # (AUTO) 0.2 10^3/uL (0.0-0.7); EOSINOPHILS % (AUTO) 2.2 %; HCT - HEMATOCRIT 38.3 % (37.0-47.0); HGB - HEMOGLOBIN 12.7 g/dL (12.0-16.0); LYMPHOCYTES # (AUTO) 2.3 10^3/uL (1.5-3.5); LYMPHOCYTES % (AUTO) 25.3 %; MEAN CORPUSCULAR HEMOGLOBIN 32.7 pg (27.0-31.0); MEAN CORPUSCULAR VOLUME 98.9 fL (81.0-99.0); MEAN PLATELET VOLUME 7.4 fL (7.9-10.8); MONOCYTES # (AUTO) 0.6 10^3/uL (0.0-1.0); MONOCYTES % (AUTO) 6.9 %; NEUTROPHILS % (AUTO) 64.6 %; RED BLOOD COUNT 3.88 10^6/uL (4.20-5.40); RED CELL DISTRIBUTION WIDTH 16.1 % (12.0-15.0); UNCORRECTED WHITE BLOOD COUNT 9.2 x10^3/uL; WHITE BLOOD COUNT 9.2 x10^3/uL (4.8-10.8)
[2017-02-13 16:26] LABS: ALBUMIN/GLOBULIN RATIO 1.2 (1.0-2.2); BILIRUBIN,TOTAL 0.4 mg/dL (0.2-1.0); BUN - BLOOD UREA NITROGEN 39 mg/dL (6-20); CARBON DIOXIDE - CO2 26 mmol/L (21-32); CHLORIDE 90 mmol/L (101-111); CREATININE 1.9 mg/dL (0.4-1.0); GFR - MDRD 28 (>89); GLUCOSE 197 mg/dL (70-100); LIPASE 63 U/L (22-51); POTASSIUM 4.2 mmol/L (3.5-5.0); SODIUM 131 mmol/L (135-145); TOTAL PROTEIN 7.6 g/dL (6.7-8.2)
[2017-02-13 16:33] LABS: ACETAMINOPHEN < 10 ug/mL (10-30)
== END 2017-02-13 17:10 | disposition home or self-care (01) ==
LOC: ED 15:17
DX: F43.21 Adjustment disorder with depressed mood (principal); I10 Essential (primary) hypertension; E78.00 Pure hypercholesterolemia, unspecified; E11.9 Type 2 diabetes mellitus without complications; Z79.4 Long term (current) use of insulin; E03.9 Hypothyroidism, unspecified; K21.9 Gastro-esophageal reflux disease without esophagitis; M19.90 Unspecified osteoarthritis, unspecified site; M10.9 Gout, unspecified; Z79.82 Long term (current) use of aspirin
CPT/HCPCS: 36415; 80053; 80307; 83690; 84443; 85025; 99283; G0480; 80320

== ENCOUNTER 2017-02-14 20:47 | Outpatient (CLI) | payer MEDICARE, MEDICAID | END 2017-02-14 20:48 | disposition critical access hospital (66) | LOC: EMS 20:47 | PROVIDERS: ATTEND Surgery | DX: Z91.14 Patient's other noncompliance with medication regimen (principal) | CPT/HCPCS: A0425; A0429 ==

== ENCOUNTER 2017-02-14 21:03 | Emergency (ER) | payer MEDICARE, MEDICAID ==
[2017-02-14 21:33] VITALS: BP 122/73
--- NOTE | 2017-02-14 21:35 | ED Physician Documentation ---
History of Present Illness - Stated complaint Stated Complaint: DIABETIC - Chief complaint Chief Complaint: General - History obtained from History obtained from: Patient, EMS - History of Present Illness Timing: Prior to arrival - Additonal information Additional information: Patient is a 52 year old female with a history of diabetes who was brought in by ems after getting in an argument with her caregiver. According to patient and ems. Patient got in an argument with the staff at [facility] about their procedure for checking blood glucose and giving insulin. Patient ended up throwing the insulin. they called police who called ems to bring the patient in for evaluation. Review of Systems Constitutional: denies: Fever, Chills Eyes: denies: Decreased vision Ears: reports: Reviewed and negative Nose: reports: Reviewed and negative Throat: reports: Reviewed and negative Cardiac: denies: Chest pain / pressure Respiratory: denies: Dyspnea GI: denies: Nausea, Vomiting : denies: Frequency Skin: denies: Rash, Lesions, Laceration (s) Musculoskeletal: reports: Reviewed and negative Neurologic: denies: Generalized weakness Psychiatric: denies: Depressed, Suicidal, Homicidal Endocrine: reports: Reviewed and negative Immunocompromised: reports: Reviewed and negative PD PAST MEDICAL HISTORY - Past Medical History Cardiovascular: Hypertension, High cholesterol Neuro: Seizure disorder, Other Endocrine/Autoimmune: Type 2 diabetes, HyPOthyroidism GI: GERD : Incontinence Psych: Depression, Anxiety, Bipolar disorder, Schizophrenia, Eating disorder, Other Musculoskeletal: Osteoarthritis, Gout, Other - Past Surgical History Past Surgical History: Yes General: Appendectomy HEENT: Other - Present Medications Home Medications: Ambulatory Orders Medication Instructions Recorded Confirmed Allopurinol [Zyloprim] 300 mg PO QPM 02/05/15 02/13/17 Aspirin [Ecotrin] 81 mg PO QPM 02/05/15 02/13/17 Atorvastatin [Lipitor] 40 mg PO QPM 02/05/15 02/13/17 Divalproex Sodium [Depakote] 1,000 mg PO QPM 02/05/15 02/13/17 Furosemide 40 mg PO DAILY 02/05/15 02/13/17 Levothyroxine [Synthroid] 75 mcg PO QDAC 02/05/15 02/13/17 Sennosides [Senna Lax] 2 tab PO BID 02/05/15 02/13/17 raNITIdine [Zantac] 150 mg PO QPM 02/05/15 02/13/17 Quetiapine Fumarate [Seroquel] 800 mg PO QPM 04/14/15 02/13/17 Calcium Carbonate 500 mg PO BID 07/03/15 02/13/17 Citalopram Hydrobromide [Celexa] 40 mg PO DAILY 07/03/15 02/13/17 LORazepam [Ativan] 0.5 mg PO 0800,1300,1700,2000 07/03/15 02/13/17 Nitroglycerin [Nitrostat] 0.4 mg SL Q5M PRN 07/03/15 02/13/17 Oxybutynin Chloride [Ditropan Xl] 5 mg PO DAILY 07/03/15 02/13/17 Insulin Glargine,Hum.rec.anlog 100 units QPM 10/27/15 02/13/17 [Lantus] Trazodone HCl 1 - 2 tab PO QPM 10/27/15 02/13/17 Lisinopril [Lisinopril] 10 mg ORAL DAILY 12/05/15 02/13/17 Ibuprofen 400 mg QID PRN 06/29/16 02/13/17 Clotrimazole Andrew 10 mg MM 5XD PRN 09/14/16 02/13/17 Brexpiprazole [Rexulti] 1 mg PO DAILY 11/07/16 02/13/17 Insulin Regular, Human [Humulin R] 1 unit SQ BID 11/07/16 02/13/17 Gluc Scott Dipo Ch/Shiv Scott/C/Manuel 1 each PO DAILY #30 capsule 01/17/17 02/13/17 [Glucosamine-Chondroitin Capsul] Lidocaine Patch 5% [Lidoderm Patch] 1 each TOP DAILY PRN #10 patch 01/17/1701/22 Wheelchair 1 each MC DAILY #1 each 01/17/17 02/13/17 - Allergies Allergies/Adverse Reactions: Allergies Allergy/AdvReac Type Severity Reaction Status Date / Time lamotrigine [From Lamictal] Allergy Unknown Verified 02/13/17 15:36 - Social History Does the pt smoke?: No Smoking Status: Never smoker Does the pt drink ETOH?: No Does the pt have substance abuse?: No - Immunizations Immunizations are current?: Yes Immunizations: TDAP current <10years - POLST Patient has POLST: No PD ED PE NORMAL - Vitals Vital signs reviewed: Yes - General General: Alert and oriented X 3, No acute distress - HEENT HEENT: Atraumatic, Moist mucous membranes - Neck Neck: Supple, no meningeal sign - Cardiac Cardiac: RRR - Respiratory Respiratory: No respiratory distress - Abdomen Abdomen: Non distended - Derm Derm: Normal color, Warm and dry - Extremities Extremities: Normal ROM s pain - Neuro Neuro: Alert and oriented X 3, No motor deficit, Normal speech Results - Vitals Vitals: Vital Signs - 24 hr 02/14/17 21:10 Temperature 36.4 C L Heart Rate 94 Respiratory 18 Rate Blood Pressure 122/73 O2 Saturation 96 Oxygen O2 Source Room air PD MEDICAL DECISION MAKING - ED course Complexity details: reviewed old records, reviewed results, re-evaluated patient , considered differential, d/w patient ED course: Patient was seen and examined at bedside. Bedside fingerstick was performed and was slightly over 200. A discussion was started with the patient concerning admission criteria and patient stated that I was a stupid doctor and stated that she wanted to leave. Patient was awake, alert and oriented and walked out of the emergency department. Departure - Departure Disposition: 07 Against Medical Advice Clinical Impression: Hyperglycemia due to type 1 diabetes mellitus Condition: Stable Discharge Date/Time: 02/14/17 21:38
== END 2017-02-14 21:38 | disposition left against medical advice (07) ==
LOC: EDUNIT# → ED 21:03
DX: E10.65 Type 1 diabetes mellitus with hyperglycemia (principal); I10 Essential (primary) hypertension; E78.00 Pure hypercholesterolemia, unspecified; Z79.82 Long term (current) use of aspirin
CPT/HCPCS: 99283; 99284

== ENCOUNTER 2017-03-31 00:26 | Outpatient (CLI) | payer MEDICARE, MEDICAID | END 2017-03-31 00:27 | disposition EMS.NT | LOC: EMS 00:26 | PROVIDERS: ATTEND Surgery | DX: M25.512 Pain in left shoulder (principal) ==

== ENCOUNTER 2017-04-03 16:55 | Outpatient (CLI) | payer MEDICARE, MEDICAID ==
--- NOTE | 2017-03-06 15:50 | CARDIAC PROCEDURE NOTE ---
DATE OF SERVICE: 03/06/2017 00:00:00 This is a 52-year-old white female with a history of diabetes, renal disease, and a family history of early cardiac disease. The patient was placed in observation for new onset of chest pain and is now undergoing an elective pharmaceutical stress test. After signing the informed consent, the patient underwent a Lexiscan nuclear stress test with the sta ndard procedure. Resting heart rate 73. Maximum heart rate 109 and sinus rhythm. Resting blood pressure 112/74. Peak b lood pressure 170/64. Baseline EKG: Normal sinus rhythm, early RS transition, no ischemic changes. Peak EKG: No new changes. The patient had no chest pain, only brief shortness of breath and "fogginess." IMPRESSION: Normal pharmaceutical portion of stress test. Nuclear images reported separately. JOB #: [id number] EXT JOB #:[id number]
[~2017-04-03 16:55] MED LIST: REGADENOSON 0.4 MG/5 ML SYRINGE IVP ONE
--- NOTE | 2017-04-04 09:12 | Ultrasound Report ---
RENAL ULTRASOUND: 04/03/2017 CLINICAL INDICATION: Chronic kidney disease. TECHNIQUE: Real-time scanning was performed with dental sales representative static images obtained. FINDINGS: The right kidney measures 12.2 x 4.7 x 4.5 cm, and the left kidney measures 10.3 x 5.5 x 5 .5 cm. Both kidneys demonstrate echogenic cortex and small cortical cysts, measuring up to 2.1 cm on the right and 1.4 cm on the left. No hydronephrosis, solid renal lesion, or perinephric collection is seen. Prevoid, the urinary bladder measures 11.3 x 11.1 x 4.1 cm, giving a prevoid volume of 270 mL. Bilat eral ureteral jets are visualized. Postvoid residual is 21 mL. Incidental note is made of a 3 cm le ft ovarian cyst. IMPRESSION: ECHOGENIC KIDNEYS, COMPATIBLE WITH MEDICAL RENAL DISEASE. NO HYDRONEPHROSIS. A TOTAL O F 21 ML POSTVOID RESIDUAL. A 3 CM LEFT OVARIAN CYST. JOB #: [id number] EXT JOB #:[id number]
== END 2017-04-03 16:56 | disposition home or self-care (01) ==
LOC: DI 16:55
PROVIDERS: ATTEND Internal Medicine Nephrology
DX: N18.4 Chronic kidney disease, stage 4 (severe) (principal)
CPT/HCPCS: 76770

== ENCOUNTER 2017-04-11 19:09 | Outpatient (CLI) | payer MEDICARE, MEDICAID | END 2017-04-11 19:10 | disposition critical access hospital (66) | LOC: EMS 19:09 | PROVIDERS: ATTEND Surgery | DX: R73.09 Other abnormal glucose (principal) | CPT/HCPCS: A0425; A0429 ==

== ENCOUNTER 2017-04-11 19:29 | Emergency (ER) | payer MEDICARE, MEDICAID ==
--- NOTE | 2017-04-11 20:41 | ED Physician Documentation ---
History of Present Illness - Stated complaint Stated Complaint: SI - Chief complaint Chief Complaint: General - History obtained from History obtained from: Patient - History of Present Illness Timing: Today - Additonal information Additional information: Patient is a 52 year old female with a history of diabetes and multiple ED visits, normally revolving about disputes at her place of living who is presenting to the emergency department after getting in an argument at her living facility. patient states that the thinks the supervisor coating "amanda" is not going to feed her tonight, or give her insulin so she came to the emergency department. Upon my initial evaluation patient was calm and cooperative and denied suicidal or homicidal ideation. Review of Systems Constitutional: denies: Fever, Chills Eyes: denies: Decreased vision Ears: reports: Reviewed and negative Nose: reports: Reviewed and negative Throat: reports: Reviewed and negative Cardiac: reports: Reviewed and negative Respiratory: reports: Reviewed and negative GI: denies: Abdominal Pain, Nausea, Vomiting : reports: Reviewed and negative Skin: reports: Reviewed and negative Musculoskeletal: reports: Reviewed and negative Neurologic: reports: Reviewed and negative Psychiatric: denies: Depressed, Suicidal, Homicidal, Hallucinations PD PAST MEDICAL HISTORY - Past Medical History Cardiovascular: Hypertension, High cholesterol Neuro: Seizure disorder, Other Endocrine/Autoimmune: Type 2 diabetes, HyPOthyroidism GI: GERD : Incontinence Psych: Depression, Anxiety, Bipolar disorder, Schizophrenia, Eating disorder, Other Musculoskeletal: Osteoarthritis, Gout, Other - Past Surgical History Past Surgical History: Yes General: Appendectomy HEENT: Other - Present Medications Home Medications: Ambulatory Orders Medication Instructions Recorded Confirmed Allopurinol [Zyloprim] 300 mg PO QPM 02/05/15 04/11/17 Aspirin [Ecotrin] 81 mg PO QPM 02/05/15 04/11/17 Atorvastatin [Lipitor] 40 mg PO QPM 02/05/15 04/11/17 Divalproex Sodium [Depakote] 1,000 mg PO QPM 02/05/15 04/11/17 Furosemide 40 mg PO DAILY 02/05/15 04/11/17 Levothyroxine [Synthroid] 75 mcg PO QDAC 02/05/15 04/11/17 Sennosides [Senna Lax] 17.2 mg PO BID 02/05/15 04/11/17 raNITIdine [Zantac] 150 mg PO QPM 02/05/15 04/11/17 Quetiapine Fumarate [Seroquel] 800 mg PO QPM 04/14/15 04/11/17 Calcium Carbonate 500 mg PO BID 07/03/15 04/11/17 Citalopram Hydrobromide [Celexa] 40 mg PO DAILY 07/03/15 04/11/17 Nitroglycerin [Nitrostat] 0.4 mg SL Q5M PRN 07/03/15 04/11/17 Oxybutynin Chloride [Ditropan Xl] 5 mg PO BID 07/03/15 04/11/17 Insulin Glargine,Hum.rec.anlog 110 units SUBQ QPM 10/27/15 04/11/17 [Lantus] Trazodone HCl 100 - 200 mg PO QPM PRN 10/27/15 04/11/17 Lisinopril 5 mg ORAL DAILY 12/05/15 04/11/17 Brexpiprazole [Rexulti] 2 mg PO DAILY 11/07/16 04/11/17 Insulin Regular, Human [Humulin R] 12 - 27 units SUBQ BID 11/07/16 04/11/17 LORazepam [Ativan] 0.5 mg PO DAILY PRN 03/06/17 04/11/17 LORazepam [Ativan] 0.5 mg PO QID 03/06/17 04/11/17 QUEtiapine [SEROquel] 100 mg PO 0800,1400 03/06/17 04/11/17 - Allergies Allergies/Adverse Reactions: Allergies Allergy/AdvReac Type Severity Reaction Status Date / Time lamotrigine [From Lamictal] Allergy Unknown Verified 04/11/17 19:39 - Social History Does the pt smoke?: No Smoking Status: Never smoker Does the pt drink ETOH?: No Does the pt have substance abuse?: No - Immunizations Immunizations are current?: Yes Immunizations: TDAP current <10years - POLST Patient has POLST: No PD ED PE NORMAL - Vitals Vital signs reviewed: Yes - General General: Alert and oriented X 3, No acute distress - HEENT HEENT: Atraumatic, PERRL - Neck Neck: Supple, no meningeal sign - Cardiac Cardiac: RRR, No murmur - Respiratory Respiratory: No respiratory distress - Abdomen Abdomen: Non distended - Derm Derm: Normal color, Warm and dry - Neuro Neuro: Alert and oriented X 3, No motor deficit, No sensory deficit, Normal speech - Psych Psych: Normal mood Results - Vitals Vitals: Vital Signs - 24 hr 04/11/17 04/11/17 19:36 20:45 Temperature 36.3 C L Heart Rate 95 90 Respiratory 18 18 Rate Blood Pressure 120/81 H 122/79 O2 Saturation 98 97 Oxygen O2 Source Room air PD MEDICAL DECISION MAKING - ED course Complexity details: reviewed old records, reviewed results, re-evaluated patient , considered differential, d/w patient ED course: Patient was seen and examined at bedside. Patient's blood glucose was 291. Patient's care facility was called and was assured that patient would receive her nighttime meds. patient required no further testing and was stable for discharge with outpatient follow up. Departure - Departure Disposition: 01 Home, Self Care Clinical Impression: Hyperglycemia Condition: Good Instructions: Hyperglycemia Follow-Up: Jerrica Tom ARNP [Primary Care Provider] - As Needed Comments: Your blood sugar today was mildly elevated. We talked with the staff tonight and you will be getting your medications (insulin). You need to continue to monitor you blood glucose and your diet. You may also want to try breathing exercises or other calming techniques when you have these interactions with the staff. You may return to the emergency department at any time if needed for new , worsening or uncontrollable symptoms. Discharge Date/Time: 04/11/17 20:45
[2017-04-11 21:01] VITALS: BP 122/79
== END 2017-04-11 20:45 | disposition home or self-care (01) ==
LOC: EDUNIT# → ED 19:29
DX: E11.65 Type 2 diabetes mellitus with hyperglycemia (principal); Z79.4 Long term (current) use of insulin; I10 Essential (primary) hypertension; E78.00 Pure hypercholesterolemia, unspecified; E03.9 Hypothyroidism, unspecified; K21.9 Gastro-esophageal reflux disease without esophagitis; M19.90 Unspecified osteoarthritis, unspecified site; M10.9 Gout, unspecified
CPT/HCPCS: 99283

== ENCOUNTER 2017-05-09 08:00 | Outpatient (CLI) | payer MEDICARE, MEDICAID ==
[2017-05-09 12:55] LABS: ALBUMIN 3.7 g/dL (3.2-5.5); ALBUMIN/GLOBULIN RATIO 1.2 (1.0-2.2); ALKALINE PHOSPHATASE 104 IU/L (42-121); ALT ALANINE AMINOTRANSFERASE 23 IU/L (10-60); AST ASPARTATE AMINOTRANSFERASE 29 IU/L (10-42); BILIRUBIN,TOTAL 0.5 mg/dL (0.2-1.0); BUN - BLOOD UREA NITROGEN 31 mg/dL (6-20); CALCIUM 9.3 mg/dL (8.5-10.3); CARBON DIOXIDE - CO2 31 mmol/L (21-32); CHLORIDE 95 mmol/L (101-111); CHOL/HDL RATIO 4.3 (<4.4); CHOLESTEROL 159 mg/dL; CREATININE 1.8 mg/dL (0.4-1.0); GFR - MDRD 30 (>89); GLUCOSE 142 mg/dL (70-100); HDL CHOLESTEROL 37 mg/dL; LDL CHOLESTEROL,CALCULATED 44 mg/dL; LDL/HDL RATIO 1.2 (<4.4); SODIUM 135 mmol/L (135-145); TOTAL PROTEIN 6.9 g/dL (6.7-8.2); VLDL CHOLESTEROL 78 mg/dL
[2017-05-09 13:54] LABS: HB2 TOTAL 13.6 g/dL; HEMOGLOBIN A1C 1.09 g/dL; HEMOGLOBIN A1C % 9.5 % (4.6-6.2)
== END 2017-05-09 08:01 | disposition home or self-care (01) ==
LOC: LAB.N 08:00
PROVIDERS: ATTEND Nurse Practitioner Gerontology
DX: N18.4 Chronic kidney disease, stage 4 (severe) (principal); E11.9 Type 2 diabetes mellitus without complications; E78.1 Pure hyperglyceridemia
CPT/HCPCS: 36415; 80053; 80061; 83036

== ENCOUNTER 2017-05-30 18:49 | Outpatient (CLI) | payer MEDICARE, MEDICAID | END 2017-05-30 18:50 | disposition critical access hospital (66) | LOC: EMS 18:49 | PROVIDERS: ATTEND Surgery | DX: R05 Cough (principal); R50.9 Fever, unspecified | CPT/HCPCS: A0425; A0429 ==

== ENCOUNTER 2017-05-30 19:06 | Emergency (ER) | payer MEDICARE, MEDICAID ==
[2017-05-30] MEDS ORDERED: OSELTAMIVIR 75 MG CAPSULE PO STA (19:56)
[2017-05-30] MEDS ORDERED: IBUPROFEN 800 MG TABLET PO STA (19:56)
--- NOTE | 2017-05-30 19:57 | ED Physician Documentation ---
History of Present Illness - Stated complaint Stated Complaint: FLU LIKE SYMPTOMS, COUGH - Chief complaint Chief Complaint: General - History obtained from History obtained from: Patient, EMS - History of Present Illness Timing: Other (Sick for a day with cough and body aches. She comes from a halfway. She has a history of psychiatric disorders and asthma. The cough is dry and hacking.) Review of Systems Constitutional: reports: Fever, Chills, Myalgias, Fatigue Throat: denies: Sore throat Cardiac: denies: Chest pain / pressure, Palpitations Respiratory: reports: Dyspnea, Cough GI: denies: Abdominal Pain PD PAST MEDICAL HISTORY - Past Medical History Past Medical History: Yes Cardiovascular: Hypertension, High cholesterol Neuro: Seizure disorder, Other Endocrine/Autoimmune: Type 2 diabetes, HyPOthyroidism GI: GERD : Incontinence Psych: Depression, Anxiety, Bipolar disorder, Schizophrenia, Eating disorder, Other Musculoskeletal: Osteoarthritis, Gout, Other - Past Surgical History Past Surgical History: Yes General: Appendectomy HEENT: Other - Present Medications Home Medications: Ambulatory Orders Medication Instructions Recorded Confirmed Allopurinol [Zyloprim] 300 mg PO QPM 02/05/15 04/11/17 Aspirin [Ecotrin] 81 mg PO QPM 02/05/15 04/11/17 Atorvastatin [Lipitor] 40 mg PO QPM 02/05/15 04/11/17 Divalproex Sodium [Depakote] 1,000 mg PO QPM 02/05/15 04/11/17 Furosemide 40 mg PO DAILY 02/05/15 04/11/17 Levothyroxine [Synthroid] 75 mcg PO QDAC 02/05/15 04/11/17 Sennosides [Senna Lax] 17.2 mg PO BID 02/05/15 04/11/17 raNITIdine [Zantac] 150 mg PO QPM 02/05/15 04/11/17 Quetiapine Fumarate [Seroquel] 800 mg PO QPM 04/14/15 04/11/17 Calcium Carbonate 500 mg PO BID 07/03/15 04/11/17 Citalopram Hydrobromide [Celexa] 40 mg PO DAILY 07/03/15 04/11/17 Nitroglycerin [Nitrostat] 0.4 mg SL Q5M PRN 07/03/15 04/11/17 Oxybutynin Chloride [Ditropan Xl] 5 mg PO BID 07/03/15 04/11/17 Insulin Glargine,Hum.rec.anlog 110 units SUBQ QPM 10/27/15 04/11/17 [Lantus] Trazodone HCl 100 - 200 mg PO QPM PRN 10/27/15 04/11/17 Lisinopril 5 mg ORAL DAILY 12/05/15 04/11/17 Brexpiprazole [Rexulti] 2 mg PO DAILY 11/07/16 04/11/17 Insulin Regular, Human [Humulin R] 12 - 27 units SUBQ BID 11/07/16 04/11/17 LORazepam [Ativan] 0.5 mg PO DAILY PRN 03/06/17 04/11/17 LORazepam [Ativan] 0.5 mg PO QID 03/06/17 04/11/17 QUEtiapine [SEROquel] 100 mg PO 0800,1400 03/06/17 04/11/17 Oseltamivir [Tamiflu] 75 mg PO BID #10 capsule 05/30/17 - Allergies Allergies/Adverse Reactions: Allergies Allergy/AdvReac Type Severity Reaction Status Date / Time lamotrigine [From Lamictal] Allergy Unknown Verified 05/30/17 19:13 - Social History Does the pt smoke?: No Smoking Status: Never smoker Does the pt drink ETOH?: No Does the pt have substance abuse?: No - Immunizations Immunizations are current?: Yes Immunizations: TDAP current <10years - POLST Patient has POLST: No PD ED PE NORMAL - Vitals Vital signs reviewed: Yes - General General: Alert and oriented X 3, No acute distress - HEENT HEENT: PERRL, EOMI - Neck Neck: Supple, no meningeal sign, No bony TTP - Cardiac Cardiac: RRR, No murmur - Respiratory Respiratory: No respiratory distress, Clear bilaterally - Abdomen Abdomen: Non tender - Neuro Neuro: Alert and oriented X 3, engine wiper 2-12 intact (x lazy eye) Eye Opening: Spontaneous Motor: Obeys Commands Verbal: Oriented GCS Score: 15 Results - Vitals Vitals: Vital Signs - 24 hr 05/30/17 05/30/17 05/30/17 19:09 20:02 20:49 Temperature 38.6 C H 38.8 C H Heart Rate 103 H 100 99 Respiratory 18 18 17 Rate Blood Pressure 131/76 H 163/67 H 124/75 O2 Saturation 92 92 94 05/30/17 22:25 Temperature 37.4 C Heart Rate 98 Respiratory 20 Rate Blood Pressure 140/65 H O2 Saturation 93 Oxygen O2 Source Room air - Labs Labs: Laboratory Tests 05/30/17 19:15 Influenza A (Rapid) POSITIVE H Influenza B (Rapid) Negative Influenza Types A,B Ag + H - Rads (name of study) 2v chest Radiology: EMP read contemporaneously (NAD) PD MEDICAL DECISION MAKING - ED course ED course: 52-year-old with influenza, some borderline pulse oximetries but no findings on pulmonary examination or chest x-ray. She is treated with Tamiflu. Departure - Departure Disposition: Home, Self Care Clinical Impression: Influenza A Condition: Good Record reviewed to determine appropriate education?: Yes Instructions: ED Flu, Medication: Tamiflu (Oseltamivir) Prescriptions: Oseltamivir [Tamiflu] 75 mg PO BID #10 capsule Comments: She can take Tylenol as needed for pain, aches, fevers. Follow-up with your doctor in 3-5 days if not improved. Drink plenty of fluids. Her chest x-ray is clear and flu swab is positive for influenza A. Your blood pressure was elevated today on check into the emergency department. This does not mean that you have hypertension, it is a common phenomenon to come to the emergency department and have elevated blood pressure. I recommend that you see your primary care physician within the week to have it rechecked when you are feeling better. Discharge Date/Time: 05/30/17 23:10
--- NOTE | 2017-05-30 20:41 | XRAY Preliminary Report ---
Exam: XR CHEST 2 VIEW X-RAY IMPRESSION: No acute disease. [facility] SITE ID: [id number]
--- NOTE | 2017-05-30 20:41 | XRAY Report ---
EXAM: CHEST RADIOGRAPHY EXAM DATE: 05/30/2017 08:23 PM. CLINICAL HISTORY: Cough O2 sats in 92%. COMPARISON: 03/05/2017. TECHNIQUE: 2 views. FINDINGS: Lungs/Pleura: Mild interstitial prominence. No definite localized infiltrate, consolidation, effusion , or pneumothorax. Mediastinum: Heart and mediastinal contours are unremarkable. Upper lobe vessels not distended. Other: Degenerative changes. IMPRESSION: No acute disease. [facility] Referring Provider Line: [phone] SITE ID: [id number]
[2017-05-30 22:26] VITALS: BP 140/65
== END 2017-05-30 23:10 | disposition home or self-care (01) ==
LOC: EDUNIT# → ED 19:06
DX: J09.X2 Influenza due to identified novel influenza A virus with other respiratory manifestations (principal); I10 Essential (primary) hypertension; E78.00 Pure hypercholesterolemia, unspecified; E03.9 Hypothyroidism, unspecified; E11.9 Type 2 diabetes mellitus without complications; Z79.4 Long term (current) use of insulin; Z79.82 Long term (current) use of aspirin
CPT/HCPCS: 71046; 87275; 87276; 99283; A9270

== ENCOUNTER 2017-06-02 08:38 | Emergency (ER) | payer MEDICARE, MEDICAID ==
[2017-06-02] MEDS ORDERED: ACETAMINOPHEN 325 MG TABLET PO STA (08:50)
--- NOTE | 2017-06-02 08:54 | ED Physician Documentation ---
PD HPI DYSPNEA - Stated complaint Stated Complaint: LOW O2 - History obtained from History obtained from: Patient, Caregiver - History of Present Illness Timing - onset: How many days ago (several) Inciting event(s): URI Recently seen: Emergency Dept (Was seen here 3 days ago, and started on Tamiflu for positive influenza swab.) - Additional information Additional information: The patient is a 52-year-old female who presents with shortness of breath. She was seen here 3 days ago and diagnosed with influenza, for which she was prescribed Tamiflu. The nursing supervisor fruit grading at the [facility] where she resides states that this morning the patient was more short of breath. She has had cough and fatigue. Past medical history is significant for insulin-dependent diabetes and chronic renal insufficiency, with creatinine usually in the 1.8 range. She was seen by her senior merchandiser this morning who sent her to the emergency department because of hypoxia and hypotension. Past history is also significant for schizoaffective disorder and seizure disorder. Review of Systems Constitutional: reports: Fever, Fatigue Nose: reports: Congestion Cardiac: denies: Chest pain / pressure, Pedal edema Respiratory: reports: Dyspnea, Cough GI: denies: Vomiting, Diarrhea : denies: Dysuria Skin: denies: Rash Musculoskeletal: denies: Extremity swelling Neurologic: denies: Headache PD PAST MEDICAL HISTORY - Past Medical History Cardiovascular: Hypertension, High cholesterol Neuro: Seizure disorder, Other Endocrine/Autoimmune: Type 2 diabetes, HyPOthyroidism GI: GERD : Incontinence Psych: Depression, Anxiety, Bipolar disorder, Schizophrenia, Eating disorder, Other Musculoskeletal: Osteoarthritis, Gout, Other - Past Surgical History Past Surgical History: Yes General: Appendectomy HEENT: Other - Present Medications Home Medications: Ambulatory Orders Medication Instructions Recorded Confirmed Allopurinol [Zyloprim] 300 mg PO QPM 02/05/15 04/11/17 Aspirin [Ecotrin] 81 mg PO QPM 02/05/15 04/11/17 Atorvastatin [Lipitor] 40 mg PO QPM 02/05/15 04/11/17 Divalproex Sodium [Depakote] 1,000 mg PO QPM 02/05/15 04/11/17 Furosemide 40 mg PO DAILY 02/05/15 04/11/17 Levothyroxine [Synthroid] 75 mcg PO QDAC 02/05/15 04/11/17 Sennosides [Senna Lax] 17.2 mg PO BID 10/01/15 12/05/17 raNITIdine [Zantac] 150 mg PO QPM 02/05/15 04/11/17 Quetiapine Fumarate [Seroquel] 800 mg PO QPM 04/14/15 04/11/17 Calcium Carbonate 500 mg PO BID 07/03/15 04/11/17 Citalopram Hydrobromide [Celexa] 40 mg PO DAILY 07/03/15 04/11/17 Nitroglycerin [Nitrostat] 0.4 mg SL Q5M PRN 07/03/15 04/11/17 Oxybutynin Chloride [Ditropan Xl] 5 mg PO BID 07/03/15 04/11/17 Insulin Glargine,Hum.rec.anlog 110 units SUBQ QPM 10/27/15 04/11/17 [Lantus] Trazodone HCl 100 - 200 mg PO QPM PRN 10/27/15 04/11/17 Lisinopril 5 mg ORAL DAILY 12/05/15 04/11/17 Brexpiprazole [Rexulti] 2 mg PO DAILY 11/07/16 04/11/17 Insulin Regular, Human [Humulin R] 12 - 27 units SUBQ BID 11/07/16 04/11/17 LORazepam [Ativan] 0.5 mg PO DAILY PRN 03/06/17 04/11/17 LORazepam [Ativan] 0.5 mg PO QID 03/06/17 04/11/17 QUEtiapine [SEROquel] 100 mg PO 0800,1400 03/06/17 04/11/17 Oseltamivir [Tamiflu] 75 mg PO BID #10 capsule 05/30/17 - Allergies Allergies/Adverse Reactions: Allergies Allergy/AdvReac Type Severity Reaction Status Date / Time lamotrigine [From Lamictal] Allergy Unknown Verified 05/30/17 19:13 - Social History Does the pt smoke?: No Smoking Status: Never smoker Does the pt drink ETOH?: No Does the pt have substance abuse?: No - Immunizations Immunizations are current?: Yes Immunizations: TDAP current <10years - POLST Patient has POLST: No PD ED PE NORMAL - Vitals Vital signs reviewed: Yes (low pulse oximetry) - General General: Other (Alert, mental disability) - HEENT HEENT: Atraumatic, EOMI, Pharynx benign - Neck Neck: No adenopathy, No JVD - Cardiac Cardiac: RRR, No murmur - Respiratory Respiratory: Other (Tachypneic) - Abdomen Abdomen: Soft, Non tender - Back Back: No CVA TTP - Derm Derm: No rash - Extremities Extremities: No edema, No calf tenderness / cord - Neuro Neuro: Alert and oriented X 3, No motor deficit, No sensory deficit Results - Vitals Vitals: Vital Signs - 24 hr 06/02/17 06/02/17 06/02/17 08:45 09:30 11:17 Temperature 37 C 36.6 C Heart Rate 93 83 88 Respiratory 32 H 30 H 30 H Rate Blood Pressure 162/145 H 86/62 L O2 Saturation 72 L 93 06/02/17 06/02/17 06/02/17 11:30 11:40 12:11 Temperature 36.7 C Heart Rate 88 90 92 Respiratory 23 30 H Rate Blood Pressure 95/52 L 111/78 O2 Saturation 93 92 06/02/17 06/02/17 06/02/17 13:07 14:28 14:42 Temperature 36.8 C 36.2 C L Heart Rate 97 96 97 Respiratory 29 H 26 H Rate Blood Pressure 97/78 129/114 H O2 Saturation 90 L 97 Oxygen O2 Source BIPAP Oxygen Flow Rate 6 - EKG (time done) 08:51 Rate: Rate (enter#) (92) Rhythm: NSR Intervals: Normal VT, Prolonged QT Ischemia: Non specific changes (Diffuse T-wave flattening.) Computer interpretation: Agree with computer - Labs Labs: Laboratory Tests 06/02/17 06/02/17 06/02/17 09:11 09:11 09:53 WBC 7.9 RBC 3.34 L Hgb 11.1 L Hct 31.0 L MCV 92.7 MCH 33.3 H MCHC 35.9 RDW 16.8 H Plt Count 137 MPV 8.1 Neut # 5.5 Lymph # 1.3 L Hanson # 1.0 Eos # 0.0 Baso # 0.1 Absolute Nucleated RBC 0.00 Nucleated RBC % 0.0 Bld Gas Analysis Time Sample Site ABG pH ABG pCO2 ABG pO2 ABG HCO3 ABG Total CO2 ABG O2 Saturation ABG Oximetry Spot Check ABG Base Excess Cheng Test Respiration Rate O2 Delivery Device O2 Liters/Min Vent Mode FiO2 Tidal Volume Pressure Support Vent EPAP IPAP Sodium 125 L Potassium 4.3 Chloride 86 L Carbon Dioxide 25 Anion Gap 14.0 H BUN 73 H Creatinine 4.7 H Estimated GFR (MDRD) 10 L Glucose 293 H Lactic Acid 1.9 Calcium 7.8 L Total Bilirubin 0.5 AST 57 H ALT 32 Alkaline Phosphatase 74 Troponin I B-Natriuretic Peptide Total Protein 5.8 L Albumin 3.0 L Globulin 2.8 Albumin/Globulin Ratio 1.1 Lipase 96 H Urine Color Urine Clarity Urine pH Ur Specific Cook Urine Protein Urine Glucose (UA) Urine Ketones Urine Occult Blood Urine Nitrite Urine Bilirubin Urine Urobilinogen Ur Leukocyte Esterase Ur Microscopic Review 06/02/17 06/02/17 06/02/17 09:53 09:53 10:15 WBC RBC Hgb Hct MCV MCH MCHC RDW Plt Count MPV Neut # Lymph # Hanson # Eos # Baso # Absolute Nucleated RBC Nucleated RBC % Bld Gas Analysis Time 1015 Sample Site LEFT RADIAL ABG pH 7.31 L ABG pCO2 49 H ABG pO2 67 L ABG HCO3 24.2 ABG Total CO2 25.7 ABG O2 Saturation 92 L ABG Oximetry Spot Check 89 ABG Base Excess -2.3 L Cheng Test POSITIVE Respiration Rate 30 O2 Delivery Device OXYMASK O2 Liters/Min 15.00 Vent Mode FiO2 Tidal Volume Pressure Support Vent EPAP IPAP Sodium Potassium Chloride Carbon Dioxide Anion Gap BUN Creatinine Estimated GFR (MDRD) Glucose Lactic Acid Calcium Total Bilirubin AST ALT Alkaline Phosphatase Troponin I < 0.04 B-Natriuretic Peptide 6 Total Protein Albumin Globulin Albumin/Globulin Ratio Lipase Urine Color Urine Clarity Urine pH Ur Specific Cook Urine Protein Urine Glucose (UA) Urine Ketones Urine Occult Blood Urine Nitrite Urine Bilirubin Urine Urobilinogen Ur Leukocyte Esterase Ur Microscopic Review 06/02/17 06/02/17 12:10 13:11 WBC RBC Hgb Hct MCV MCH MCHC RDW Plt Count MPV Neut # Lymph # Hanson # Eos # Baso # Absolute Nucleated RBC Nucleated RBC % Bld Gas Analysis Time 1311 Sample Site RIGHT RADIAL ABG pH 7.30 L ABG pCO2 38 ABG pO2 65 L ABG HCO3 18.4 L ABG Total CO2 19.6 L ABG O2 Saturation 90 L ABG Oximetry Spot Check 93 ABG Base Excess -7.3 L Cheng Test POSITIVE Respiration Rate 23 O2 Delivery Device BiPAP O2 Liters/Min Vent Mode SYNCHRONOUS/TIMES FiO2 50.00 Tidal Volume 412 Pressure Support Vent 9 EPAP 5 IPAP 14 Sodium Potassium Chloride Carbon Dioxide Anion Gap BUN Creatinine Estimated GFR (MDRD) Glucose Lactic Acid Calcium Total Bilirubin AST ALT Alkaline Phosphatase Troponin I B-Natriuretic Peptide Total Protein Albumin Globulin Albumin/Globulin Ratio Lipase Urine Color YELLOW Urine Clarity CLEAR Urine pH 6.0 Ur Specific Cook 1.025 Urine Protein NEGATIVE Urine Glucose (UA) NEGATIVE Urine Ketones NEGATIVE Urine Occult Blood NEGATIVE Urine Nitrite NEGATIVE Urine Bilirubin NEGATIVE Urine Urobilinogen 0.2 (NORMAL) Ur Leukocyte Esterase NEGATIVE Ur Microscopic Review NOT INDICATED - Rads (name of study) 1-view CXR Radiology: Prelim report reviewed, EMP read contemporaneously, See rad report ( Shallow inspiration limits detail. Prominent lung markings, question interstitial pulmonary edema, infiltrates, and/or atelectasis. Follow-up recommended.) Procedures - General procedure General procedure: After 2 failed attempts by respiratory therapy to draw arterial blood gas, using sterile technique, I kahlil arterial blood gas from the right radial artery , without difficulty. Patient tolerated the procedure well. PD MEDICAL DECISION MAKING - ED course Complexity details: reviewed old records, reviewed results, re-evaluated patient , considered differential, d/w patient, d/w tanning consultant ED course: The patient's presentation is significant for acute respiratory failure with hypoxemia in the setting of acute exacerbation of chronic renal insufficiency. Her creatinine is elevated at 4.7 today, compared with recent creatinine of 1.8. 2 days ago she was diagnosed with influenza. She does not appear septic, and her lactate level is 1.9. Treatment in the emergency department included administration of normal saline 250 mL bolus 2. Her blood pressure did improve with this treatment. A Boyd catheter was inserted to monitor urine output. On high flow oxygen at 15 L by nasal cannula her blood gas revealed a pH of 7.31, PCO2 elevated at 49.1, and PO2 low at 66.5. Repeat blood gas after placement on BiPAP with an FiO2 of 0.5 revealed slight improvement in ventilation, with no improvement in oxygenation, with a pH of 7.30, PCO2 38.0, and PO2 65.1. Her FiO2 was increased to 0.7, and repeat blood gas is pending. On the higher oxygen flow she does appear more comfortable and her pulse oximetry is improved to 96%. Lasix 40 mg was administered IV. I discussed her condition with Dr. Maguire who is her senior merchandiser, and he agrees with transfer to an acute care facility. I discussed her condition with Dr. Arguelles the malt house kiln operator at [facility]. She will accept the patient in transfer. She is being transported by ALS ambulance. Transfer forms were completed. - Critical Care Time(min): 75 Time Includes: Direct patient care, Review records, Reassess patient, Document care, Coordinate care Data interpretation: Labs, Pulse ox, ABG, CXR Procedures excluded from critical care time: Arterial cannulation Departure - Departure Disposition: 02 Transfer Acute Care Hosp Clinical Impression: Renal failure (ARF), acute on chronic, Influenza A, Hyponatremia Respiratory failure Qualifiers: Chronicity: acute Respiratory failure complication: hypoxia Qualified Code(s): J96.01 - Acute respiratory failure with hypoxia Discharge Date/Time: 06/02/17 16:11
[2017-06-02] MEDS ORDERED: IPRATROPIUM/ALBUTEROL 3 ML NEB INH STA (09:00)
[2017-06-02 09:27] LABS: BASOPHILS # (AUTO) 0.1 10^3/uL (0.0-0.1); BASOPHILS % (AUTO) 0.8 %; EOSINOPHILS % (AUTO) 0.4 %; HGB - HEMOGLOBIN 11.1 g/dL (12.0-16.0); LYMPHOCYTES # (AUTO) 1.3 10^3/uL (1.5-3.5); LYMPHOCYTES % (AUTO) 16.8 %; MEAN CORPUSCULAR HEMOGLOBIN 33.3 pg (27.0-31.0); MEAN CORPUSCULAR HGB CONC 35.9 g/dL (32.0-36.0); MEAN CORPUSCULAR VOLUME 92.7 fL (81.0-99.0); MEAN PLATELET VOLUME 8.1 fL (7.9-10.8); MONOCYTES % (AUTO) 12.1 %; NEUTROPHILS # (AUTO) 5.5 10^3/uL (1.5-6.6); NEUTROPHILS % (AUTO) 69.9 %; PLT - PLATELET COUNT 137 10^3/uL (130-450); RED BLOOD COUNT 3.34 10^6/uL (4.20-5.40); RED CELL DISTRIBUTION WIDTH 16.8 % (12.0-15.0); WHITE BLOOD COUNT 7.9 x10^3/uL (4.8-10.8)
--- NOTE | 2017-06-02 09:47 | XRAY Report ---
EXAM: CHEST RADIOGRAPHY EXAM DATE: 06/02/2017 09:35 AM. CLINICAL HISTORY: Dyspnea, with low O2 sats. COMPARISON: 05/30/2017. TECHNIQUE: 1 view. FINDINGS: Lungs/Pleura: Low lung volumes accentuate bronchovascular markings. There is peribronchovascular hazi ness especially centrally, right greater than left. No dense segmental consolidation. No pneumothorax or obvious pleural effusion. Mediastinum: Grossly stable cardiomediastinal silhouette. Borderline heart size. Other: No acute fracture evident. IMPRESSION: 1. Shallow inspiration limits detail. 2. Prominent lung markings, question interstitial pulmonary edema, infiltrates, and/or atelectasis. F ollow-up recommended. [facility] Referring Provider Line: [phone] SITE ID: [id number]
[2017-06-02 10:16] LABS: ALBUMIN/GLOBULIN RATIO 1.1 (1.0-2.2); BILIRUBIN,TOTAL 0.5 mg/dL (0.2-1.0); CALCIUM 7.8 mg/dL (8.5-10.3); CREATININE 4.7 mg/dL (0.4-1.0); TOTAL PROTEIN 5.8 g/dL (6.7-8.2)
[2017-06-02 10:34] LABS: ABG BASE EXCESS -2.3 mmol/L (-2.0-3.0); ABG HCO3 24.2 mmol/L (22.0-26.0); ABG OXYGEN SATURATION 92 % (94-98); ABG PCO2 49 mmHg (34-45); ABG PH 7.31 (7.35-7.45); ABG PO2 67 mmHg (80-100); ABG TCO2 25.7 MMOL/L (21.0-29.0); ALLEN TEST POSITIVE
[2017-06-02] MEDS ORDERED: FUROSEMIDE 40 MG/4 ML VIAL IVP STA (11:22)
[2017-06-02] MEDS ORDERED: SODIUM CHLORIDE 0.9% 250 ML IV ONE ×2 (11:48→13:14)
[2017-06-02 12:19] LABS: BILIRUBIN,URINE NEGATIVE (NEGATIVE); GLUCOSE, URINE (UA) NEGATIVE (NEGATIVE); KETONES,URINE (UA) NEGATIVE (NEGATIVE); LEUKOCYTE ESTERASE, URINE NEGATIVE (NEGATIVE); NITRITE,URINE NEGATIVE (NEGATIVE); OCCULT BLOOD,URINE NEGATIVE (NEGATIVE); PROTEIN,URINE NEGATIVE (NEGATIVE); UROBILINOGEN,URINE 0.2 (NORMAL) E.U./dL (NORMAL)
[2017-06-02 12:20] LABS: CLARITY,URINE CLEAR (CLEAR)
[2017-06-02 13:38] LABS: ABG BASE EXCESS -7.3 mmol/L (-2.0-3.0); ABG HCO3 18.4 mmol/L (22.0-26.0); ABG OXYGEN SATURATION 90 % (94-98); ABG PCO2 38 mmHg (34-45); ABG PO2 65 mmHg (80-100); ABG TCO2 19.6 MMOL/L (21.0-29.0); ALLEN TEST POSITIVE
[2017-06-02 14:29] VITALS: BP 129/114
== END 2017-06-02 16:11 | disposition short-term general hospital (02) ==
LOC: ED 08:38
DX: N17.9 Acute kidney failure, unspecified (principal); J96.01 Acute respiratory failure with hypoxia; J10.1 Influenza due to other identified influenza virus with other respiratory manifestations; E87.1 Hypo-osmolality and hyponatremia; I10 Essential (primary) hypertension; E78.00 Pure hypercholesterolemia, unspecified; E11.9 Type 2 diabetes mellitus without complications; Z79.4 Long term (current) use of insulin; E03.9 Hypothyroidism, unspecified; K21.9 Gastro-esophageal reflux disease without esophagitis; M10.9 Gout, unspecified; M19.90 Unspecified osteoarthritis, unspecified site; Z79.82 Long term (current) use of aspirin
CPT/HCPCS: 36415; 36600; 51702; 71045; 80053; 81003; 82803; 83605; 83690; 83880; 84484; 85025; 87040; 93005; 94640; 94660; 99284; 99291; A9270; J7620; 81001